=== PATIENT | male | born 1980 | race Caucasian/White ===

== ENCOUNTER → 2017-12-13 | Outpatient (CLI) | payer OTHER ==
[~2017-12-13] MED LIST: CELEBREX 200 M200 M1 PO; CHANTIX PO; CLEOCIN HCL150 MG; HYDROCODON-ACE1 EAC7 PO; MOBIC7.5 MG PO; NORCO 10-325 T1 EACH PO; TYLENOL325 MG PO
== END ==
LOC: M.MRI 12-04 14:30
DX: M48.02 Spinal stenosis, cervical region (principal); M54.12 Radiculopathy, cervical region; M50.30 Other cervical disc degeneration, unspecified cervical region; M50.221 Other cervical disc displacement at C4-C5 level; M50.222 Other cervical disc displacement at C5-C6 level; M50.223 Other cervical disc displacement at C6-C7 level; M25.78 Osteophyte, vertebrae